=== PATIENT | female | born 1985 | race Caucasian/White ===

== ENCOUNTER 2017-09-08 17:52 | Emergency (ER) | payer MEDICAID ==
[~2017-09-08] VITALS: Ht 165.1 cm; Wt 57.0 kg
[2017-09-08 17:55] VITALS: BP 115/72
[2017-09-08] MEDS ORDERED: KETOROLAC 30 MG/1 ML IM ONE (18:30)
[2017-09-08] MEDS ORDERED: METHOCARBAMOL 750 MG TABLET PO ONE (18:30)
[2017-09-08] MEDS ORDERED: METHOCARBAMOL 750 MG TABLET ONE (18:33)
[2017-09-08] MEDS ORDERED: KETOROLAC 30 MG/1 ML ONE (18:33)
== END 2017-09-08 19:24 | disposition home or self-care (01) ==
LOC: ED 18:49
DX: M54.2 Cervicalgia (principal); R25.2 Cramp and spasm
CPT/HCPCS: 96372; 99283; J1885

== ENCOUNTER 2017-09-29 20:47 | Emergency (ER) | payer OTHER ==
[~2017-09-29] VITALS: Ht 165.1 cm; Wt 55.5 kg
[2017-09-29 21:01] VITALS: BP 107/67
== END 2017-09-29 23:13 | disposition home or self-care (01) ==
LOC: ED 21:36
DX: R10.2 Pelvic and perineal pain (principal); Z30.432 Encounter for removal of intrauterine contraceptive device; F17.200 Nicotine dependence, unspecified, uncomplicated
CPT/HCPCS: 99281